=== PATIENT | male | born 1985 | race Caucasian/White ===

== ENCOUNTER 2024-02-21 12:54 | Emergency (ER) | payer OTHER, SELFPAY ==
[2024-02-21 13:00] VITALS: BP 133/79
--- NOTE | 2024-02-21 14:06 | ED.GENMED ---
History of Present Illness
General
Chief Complaint: Musculo-Skeletal Complaint
Source: patient
Exam Limitations: none
Time Seen by Provider: 02/21/24 13:15
Nursing documentation reviewed up to this point in time: agreed with
Travel History
Have you had any contact with someone who has COVID-19?: No
Do you have any symptoms of coronavirus? Fever > 100 degrees, chills, cough, shortness of breath, sore throat, loss of taste or smell, muscle aches, or headache?: No
History of Present Illness
History of Present Illness:
38-year-old male with past medical history of asthma presenting to the emergency department today with concerns of left-sided foot injury after dropping plywood from his truck directly onto his foot. Difficulty ambulating since. This happened just
prior to arrival. Denies any numbness weakness or additional concerns.
Past History
Past History
ED Past Medical History: Other (Psoriasis, MRSA); Negative IDDM or NIDDM
ED Past Surgical History: None, Orthopedic and Urological (Vasectomy)
Social History
Tobacco: Smoker
Alcohol: Occasional
Personal: Single
Living: with family
Employment: Employed
Review of Systems
Review of Systems
Allergies reviewed?: Yes
All Other Systems: ROS reviewed and negative except as documented in HPI and ROS
Phy Exam
Physical Exam
Physical Exam:
GENERAL: Alert , in no apparent distress
EYE: pupils equal and reactive
NECK: Supple, no significant adenopathy.
ENT: o/p clr, mmm.
CARDIAC: Regular rate and rhythm .
LUNGS: Clear breath sounds bilaterally, no acute respiratory distress, no wheezes/rales/rhonchi
ABDOMEN: Soft, without focal tenderness, no r/g, no cvat
NEUROLOGICAL: Alert and oriented, no focal neuro deficits
SKIN: Warm and dry, skin intact.
MUSCULOSKELETAL: Swelling to the midfoot of the left foot mainly overlying the second and third metatarsals good dorsalis pedis pulses and posterior tibialis pulses no breaks in the skin normal sensation distally into the toes normal cap refill good
range of motion of the ankle no tenderness to the base of the fifth metatarsal, well perfused.
PSYCH: Normal and appropriate interaction.
Course
Orders/Labs/Results
Orders:
Orders
02/21/24 13:02
CR Foot - Left Min 3 Views Urgent
Comment:
Reason For Exam: foot injury
02/21/24 14:20
Acetaminophen [Tylenol] 650 mg PO NOW STA
Ibuprofen [Motrin] 600 mg PO NOW STA
Vital Signs
Initial and Last Documented VS:
Initial Vital Signs
Temp Pulse Resp BP Pulse Ox
98.7 F 64 20 133/79 99
02/21/24 13:00 02/21/24 13:00 02/21/24 13:00 02/21/24 13:00 02/21/24 13:00
Last Documented Vital Signs
Temp Pulse Resp BP Pulse Ox
98.7 F 86 16 130/87 100
02/21/24 13:00 02/21/24 14:25 02/21/24 14:25 02/21/24 14:25 02/21/24 14:25
MDM/Problems Addressed
MDM/Problems Addressed:
38-year-old male presenting to the emergency department today with concerns of injury to the left foot. Patient with tenderness mainly to the midfoot after plywood hit him directly in the foot. Neurovascularly intact. X-ray performed showing
nondisplaced fracture of the left second metatarsal. Patient was placed in a walking boot and given crutches advised for close outpatient follow-up return precautions given.
*Critical Care Note
Total Time (30-74mins, 75-104mins- exclusive of procedures): Not Applicable
ED Attending Note
-
Portions of this chart may have been created with voice recognition software.� Occasional wrong word or��sound alike� substitutions may have occurred due to the inherent limitations of voice recognition software.
Discharge Plan
Departure
Patient Disposition: Home (Routine Discharge)
Date of Disposition: 02/21/24
Time of Disposition: 14:10
Patient with high blood pressure during this ER visit?: No
Condition: Good
Covid-19: Not Applicable
Discharge Problem:
Fracture of second metatarsal bone
Instructions: Foot Fracture (DC)
Prescriptions:
No Action
Skyrizi 150 mg/mL Syringe
150 mg SC Q12W
cephalexin 250 mg capsule
250 mg PO QID 7 Days Qty: 28 0RF
Referrals:
Refugio Cordova MD [Family Provider] -
Hailey Hummel DPM [Active] - Follow up in 5-7 days
Stand Alone Forms: Return to Work
Activity Restrictions/Additional Instructions:
You came to the emergency department today with concerns of foot discomfort you are found to have a second metatarsal fracture. Please rest ice compress and elevate and ambulate as tolerated but you may need a few days of nonweightbearing for
initial healing. Please follow closely with the foot doctor. Return to the emergency department for any worsening, new or concerning symptoms.
Interventions
Interventions:
*Risk Screen - Suicide Last Done: 02/21/24 13:00
*General Assessment Last Done: 02/21/24 13:00
*Neglect/Abuse Screening Last Done: 02/21/24 13:00
ED- Fall Risk Assessment Last Done: 02/21/24 14:03
*ED COVID-19 Vaccine History Last Done: 02/21/24 14:41
*Nursing Disposition Last Done: 02/21/24 14:41
ED-Musculoskeletal Assessment Last Done: 02/21/24 14:03
Discharge Date and Time
Discharge Date/Time: 02/21/24 14:42
Print Language: MONGOLIAN
[2024-02-21 14:25] VITALS: BP 130/87
[2024-02-21] MEDS: TYLENOL 650 MG PO (14:29)
[2024-02-21] MEDS: MOTRIN 600 MG PO (14:29)
== END 2024-02-21 14:42 | disposition home or self-care (01) ==
LOC: EMR 12:54
PROVIDERS: EMERGENCY PHYSICIAN Emergency Medicine; FAMILY PHYSICIAN Family Medicine
DX: S92.325A Nondisplaced fracture of second metatarsal bone, left foot, initial encounter for closed fracture (principal); W20.8XXA Other cause of strike by thrown, projected or falling object, initial encounter; J45.909 Unspecified asthma, uncomplicated
CPT/HCPCS: 99283; 73630